=== PATIENT | male | born 1945 | race Two or more races ===

== ENCOUNTER 2018-04-27 16:31 | Emergency (ER) | payer MEDICARE, MEDICAID ==
[~2018-04-27] VITALS: Ht 172.7 cm; Wt 108.9 kg
[~2018-04-27 16:31] MED LIST: ATORVASTATIN CA40 MG ORAL; BAYER CHEWABLE81 MG PO; CEPHALEXIN500 MG ORAL; CLOTRIMAZOLE15 GM TOPIC; LOSARTAN POTASS25 M1 PO; PLAVIX75 MG ORAL
[2018-04-27 16:40] VITALS: BP 132/77
--- NOTE | 2018-04-27 16:40 | NUR ---
ED Nurse Note: pt walked in to ER c/o Lt leg celluitis and slight bleeding with pain 5/10. pt aao x4 and calm and cooperative. skin clean and intact besides Lt lower leg. per pt, he scratched with his nails last night and it got worse.
--- NOTE | 2018-04-27 17:05 | Emergency Room Report ---
History of Present Illness General Chief Complaint: Skin Rash/Abscess Source: Patient, Medical Record Present Illness HPI This is a very pleasant 72-year-old male with a history of chronic skin changes , likely due to peripheral vascular disease, who complains of itching and irritation on the left leg. He took the bandages off and noted that her episodes of bleeding. The was controlled with direct pressure. He denies any fever. He denies any change in the redness. This happened earlier today. He tried going to his primary care physician and went to the wrong office. Patient states he feels very anxious due to his symptoms. Allergies: Coded Allergies: No Known Allergies (Unverified , 10/10/14) Patient History Past Surgical History: none Pertinent Family History: none Nursing Documentation-PMH Past Medical History: No History, Except For Hx Cardiac Problems: Yes Hx Hypertension: Yes Hx Cancer: No Hx Gastrointestinal Problems: Yes - constipation Hx Neurological Problems: No Review of Systems All Other Systems: negative except mentioned in HPI Physical Exam Vital Signs Date Time Temp Pulse Resp B/P (MAP) Pulse Ox O2 Delivery O2 Flow Rate FiO2 04/27/18 16:34 97.9 99 18 136/69 91 Room Air General Appearance: well appearing, no apparent distress Head: normocephalic, atraumatic ENT: hearing grossly normal, normal voice Neck: full range of motion, supple Respiratory: no respiratory distress, speaking full sentences Neurologic: alert, normal gait Psychiatric: mood/affect normal Skin: no rash, well hydrated, other - there is chronic skin changes on the left leg. several abrasions. No lacerations. Non tender. erythema is just below pateller. Distal neurovascular is intact. Medical Decision Making Diagnostic Impression: Primary Impression: Venous stasis dermatitis ER Course Patient presents significant complexity or wrists. Particularly very concerned about DVT, arterial thrombosis, cellulitis, necrotizing fasciitis. The patient' s symptoms are quite chronic in nature. There is nontender. It is not warm to touch. He is afebrile. He does have significant past medical history. He is not tachypnea, tachycardic, hypoxic. Exacerbate his CHF is considered however unlikely. I see no signs of infection at this time. We have cleaned the area and wrapped the wound. He feels much better. She is less anxious. He is to follow-up with his primary care physician as an outpatient in 48 hours for reevaluation and to return sooner if is any change in symptoms or worsening symptoms. Last Vital Signs Date Time Temp Pulse Resp B/P (MAP) Pulse Ox O2 Delivery O2 Flow Rate FiO2 04/27/18 16:34 97.9 99 18 136/69 91 Room Air Disposition: HOME, SELF-CARE Condition: Stable Patient Instructions: Stasis Dermatitis MIGEL NICHOLS Apr 27, 2018 17:05
--- NOTE | 2018-04-27 17:22 | NUR ---
ED Nurse Note: Received verbal order to perform wound care. cleans with NS, pat dry, apply wet dressing, cover with kerlix. pt can be discharged after wound care.
[2018-04-27] MEDS ORDERED: Bacitracin Oint 15gm Tube TOPIC ONE (18:00)
[2018-04-27 18:28] VITALS: BP 132/77
--- NOTE | 2018-04-27 18:29 | NUR ---
ER DISCHARGE NOTE: Patient is cleared to be discharged per ERMD after wound care with Bacitracin, pt is aox4, on room air, with stable vital signs. pt was given dc instructions, pt was able to verbalize understanding, pt id band removed. pt is able to ambulate with steady gait. pt took all belongings.
== END 2018-04-27 18:30 | disposition home or self-care (01) ==
LOC: EMR 17:02
DX: I87.2 Venous insufficiency (chronic) (peripheral) (principal); L30.8 Other specified dermatitis; I10 Essential (primary) hypertension
CPT/HCPCS: 99282